=== PATIENT | male | born 1965 | race Two or more races ===

== ENCOUNTER 2018-01-11 15:38 | Day surgery (SDC) | payer BC | END 2018-01-11 17:48 | disposition home or self-care (01) | LOC: GIL 15:38 | DX: Z12.11 Encounter for screening for malignant neoplasm of colon (principal); E11.9 Type 2 diabetes mellitus without complications; I10 Essential (primary) hypertension; E78.5 Hyperlipidemia, unspecified | CPT/HCPCS: 45378; 82962 ==

== ENCOUNTER 2018-09-23 10:12 | Day surgery (SDC) | payer BC ==
[2018-09-23] MEDS ORDERED: PROPOFOL 60 ML (12:12)
[2018-09-23] MEDS ORDERED: LIDOCAINE 2% (SDV) 5 ML INJ (12:12)
== END 2018-09-23 15:31 | disposition home or self-care (01) ==
LOC: GIL 10:12
DX: Z12.11 Encounter for screening for malignant neoplasm of colon (principal); D12.5 Benign neoplasm of sigmoid colon; K64.8 Other hemorrhoids; E11.9 Type 2 diabetes mellitus without complications; I10 Essential (primary) hypertension; E66.9 Obesity, unspecified; Z68.30 Body mass index [BMI] 30.0-30.9, adult
CPT/HCPCS: 45380; 82962; 88305